=== PATIENT | male | born 1985 | race Caucasian/White ===

== ENCOUNTER 2022-08-15 19:51 | Emergency (ER) | payer OTHER ==
[2022-08-15 19:55] VITALS: BP 122/78; PULSE 69; RESP 18; TEMP 97.6; BMI 29.9
== END 2022-08-15 21:01 | disposition home or self-care (01) ==
LOC: JERFT 19:51
PROC: 0HQ1XZZ Repair Face Skin, External Approach (ICD-10-PCS; principal; 2022-08-15)
DX: S01.111A Laceration without foreign body of right eyelid and periocular area, initial encounter (principal); W45.8XXA Other foreign body or object entering through skin, initial encounter
CPT/HCPCS: 99282-25